=== PATIENT | male | born 2000 | race Caucasian/White ===

== ENCOUNTER 2018-11-13 18:57 | Emergency (ER) | payer MEDICAID, OTHER ==
[~2018-11-13] VITALS: Ht 167.6 cm; Wt 65.4 kg
[2018-11-13 18:59] VITALS: Ht 167.6 cm; Wt 65.4 kg
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
[2018-11-13] MEDS ORDERED: RISPERIDONE 1 MG TAB PO ONE (22:00)
[2018-11-14] MEDS ORDERED: LORAZEPAM 2 MG INJ IV ONE (00:30)
[2018-11-14] MEDS ORDERED: LORAZEPAM 2 MG INJ IM ONE (01:00)
--- NOTE | 2018-11-14 08:03 | QN ---
Documentation Comment Observation Note Subjective: This patient was signed out to me by at 6 AM on November 14, 2018 pending PET team evaluation. Briefly, this is a 18-year-old male who is presenting with suicidal ideations, danger to self and grave disability. He was evaluated by telepsychiatry who felt that the patient would benefit from inpat ient psychiatric assessment. Family history: As indicated on the initial history and physical of this ER visit Objective: Vital signs reviewed Const: No apparent distress, well-developed, well-nourished Head: Normocephalic, Atraumatic Eyes: Normal Conjunctiva. ENT: Normal External Ears, Nose and Mouth. Neck: No meningismus. Resp: Symmetric chest wall hines, no audible wheezes Cardio: Regular rate Abd: Non distended Skin: No petechiae or rashes Back: Deferred Ext: No cyanosis, or edema Neur: Awake and alert, oriented 4. No facial droop. Normal strength and sensation. Psych: Currently calm and cooperative Assessment: Suicidal ideations, danger to self, grave disability Plan: The patient's workup included a medical screening examination, laboratory analysis, and diagnostic imaging such as EKG, chest x-ray or CT brain as indicated. The patient's laboratory analysis, diagnostic imaging do not suggest an acute organic pathology. At this time I believe the patient's presentation is consistent with underlying psychiatric illness and likely exacerbation of this illness and/or psychosis. I have a much lower clinical concern for delirium or acute organic pathology such as toxicologic, metabolic, ischemic, intracranial hemorrhage, infectious process. However, we must rule this out prior to relying a diagnosis of underlying psychiatric illness. The patient is medically cleared for psychiatric evaluation. I kept the patient and/or family informed of laboratory and diagnostic imaging results throughout the emergency room course. The patient did not require any physical or chemical restraint while under my care. The patient was medically cleared. Psychiatric consultation: Telemetry medicine psychiatry has been consulted on this case to evaluate the patient for possible acute psychiatric illness that would require inpatient hospitalization. Medication recommendations will be addressed. The patient was evaluated by [facility] who accepted the patient for inpatient psychiatric evaluation and management. The patient was transferred during my shift. The patient was observed for at least 4 hours while under my care. SHERRY FUNES MD Nov 14, 2018 08:03
[2018-11-14 09:05] VITALS: BP 118/88; PULSE 85; RESP 18
== END 2018-11-14 10:14 ==
LOC: E/R 18:57 → EDBD 18:57 → E/R 11-14 10:14
DX: F99 Mental disorder, not otherwise specified (principal); R40.2142 Coma scale, eyes open, spontaneous, at arrival to emergency department; R40.2252 Coma scale, best verbal response, oriented, at arrival to emergency department; R40.2362 Coma scale, best motor response, obeys commands, at arrival to emergency department; Z87.891 Personal history of nicotine dependence
CPT/HCPCS: 36415; 80053; 80307; 85025; 96372; J2060; Z7502; Z7610